=== PATIENT | female | born 1995 | race Hispanic/Latino ===

== ENCOUNTER 2018-03-26 10:52 | Emergency (ER) | payer OTHER ==
[~2018-03-26] VITALS: Ht 162.6 cm; Wt 59.4 kg
[2018-03-26] MEDS ORDERED: DONNATAL/LIDOCAINE/MAALOX 30 ML SUSP PO ONE ×2 (11:15→13:00)
--- NOTE | 2018-03-26 13:25 | Diagnostic Imaging Report ---
EXAMINATION: PA and lateral views of the chest. COMPARISON: None CLINICAL HISTORY: Right chest pain DISCUSSION: Lines/tubes: None. Lungs: The lungs are well inflated and clear. There is no evidence of pneumonia or pulmonary edema. Pleura: There is no pleural effusion or pneumothorax. Heart and mediastinum: Cardiomediastinal silhouette is unremarkable. Pulmonary vasculature is normal. Bones and soft tissues: No acute bony abnormalities. IMPRESSION: No acute cardiopulmonary abnormalities. Signed by: Dr. Dhruv Conde M.D. on 03/26/2018 1:21 PM
== END 2018-03-26 13:54 | disposition home or self-care (01) ==
LOC: ER 10:52
DX: R06.09 Other forms of dyspnea (principal); F41.1 Generalized anxiety disorder
CPT/HCPCS: 71046; 93005; 99284

== ENCOUNTER → 2018-11-11 | Day surgery (SDC) | payer OTHER ==
[~2018-11-11] MED LIST: CEFTRIAXONE SOD 1 GM/NS 50 ML 50 ML IV ONE; DEXAMETHASONE SOD PHOS INJ 4 MG/ML VIAL ONE; FENTANYL CITRATE/PF 100MCG/2 ML INJ ONE; IOPAMIDOL 610MG/1ML 300 MG/ML VIAL IV ONE; LEVOTHYROXINE75 MCG PO; LIDOCAINE HCL 2% LOCAL INJ 5 ML SDV VIAL INJ ONE; MIDAZOLAM HCL 2 MG/2 ML VIAL ONE; ONDANSETRON HCL INJ 2MG/ML 2ML 2 MG/ML VIAL ONE; PROPOFOL IV EMULSION 10 MG/ML 20 ML VIAL ONE; SEVOFLURANE INHAL SOLN 250 ML PEN BTL ONE
[2018-11-11 14:45] VITALS: BP 104/76
--- OUTSIDE RECORDS SUMMARY | 2018-11-19 09:22 | XMS REPORT ---
[facility] Address [facility] Phone Unavailable Care Team Providers Care Client Representative Name Role Phone Dionte BREWSTER Unavailable Unavailable Payers Payer Name Policy Type Policy Number Effective Date Expiration Date Problems This patient has no known problems. Allergies, Adverse Reactions, Alerts Allergy Name Allergy Type Status Severity Reaction(s) Onset Date Inactive Date Treating Clinician Comments Sulfa (Sulfonamide Antibiotics) DA Active U 2014-11-24 00:00:00 Medications This patient has no known medications. Results Test Description Test Time Test Comments Text Results Atomic Results Result Comments URINALYSIS COMPLETE 2018-09-13 21:39:00 UA COLOR (test code=COLU) STRAW YELLOW UA APPEARANCE (test code=APPU) CLEAR CLEAR UA GLUCOSE DIPSTICK (test code=DGLUU) NEGATIVE mg/dL NEGATIVE UA BILIRUBIN DIPSTICK (test code=BILU) NEGATIVE mg/dL NEGATIVE UA KETONE DIPSTICK (test code=KETU) Negative mg/dL NEGATIVE UA SPECIFIC GRAVITY (test code=SGU) 1.011 1.001-1.035 UA BLOOD DIPSTICK (test code=ROYA) Negative NEGATIVE UA PH DIPSTICK (test code=LEO) 7.0 5.0-8.0 UA PROTEIN DIPSTICK (test code=PROU) Negative mg/dL NEGATIVE UA UROBILINIOGEN DIPSTICK (test code=URO) NEGATIVE mg/dL NEGATIVE UA NITRITE DIPSTICK (test code=VOLODYMYR) NEGATIVE NEGATIVE UA LEUKOCYTE ESTERASE W REFLEX (test code=LEUUR) NEGATIVE NEGATIVE UA WBC (test code=WBCU) 0-5 #/HPF 0-5 UA RBC (test code=RBCU) 0-2 #/HPF 0-5 UA EPITHELIAL CELLS (test code=EPIU) FEW per HPF FEW Urine Source? Clean CatchUR HCG [id number] 21:39:00* Test Item Value Reference Range Comments UR HCG QUAL (test code=HCGQLU) NEGATIVE This HCGQL test is NOT applicable for MALE patients.Check with nurse about probable order error.If Tumor Marker Test needed, nurse should order test "HCGTU"(Test #550.97542) Urine Source? Clean CatchURINALYSIS [id number] 21:37:00* Test Item Value Reference Range Comments UA COLOR (test code=COLU) YELLOW UA APPEARANCE (test code=APPU) CLEAR UA BILIRUBIN DIPSTICK (test code=BILU) NEGATIVE UA SPECIFIC GRAVITY (test code=SGU) 1.001-1.035 UA PH DIPSTICK (test code=LEO) 5.0-8.0 UA UROBILINIOGEN DIPSTICK (test code=URO) mg/dL 0.0-0.2 UA NITRITE DIPSTICK (test code=VOLODYMYR) NEGATIVE UA LEUKOCYTE ESTERASE W REFLEX (test code=LEUUR) NEGATIVE UA WBC (test code=WBCU) per HPF 0-5 Urine Source? Clean CatchUR HCG [id number] 21:37:00* Test Item Value Reference Range Comments UR HCG QUAL (test code=HCGQLU) NEGATIVE This HCGQL test is NOT applicable for MALE patients.Check with nurse about probable order error.If Tumor Marker Test needed, nurse should order test "HCGTU"(Test #550.10598) Urine Source? Clean CatchCHEST 2 [id number] 13:21:00 [facility] [address] [address] Patient Name: ALBA LYLES MR #: [id number] : 1995 Age/Sex: 22/F Req #: [id number] Adm Physician: Ordered by: WALLY ARCHULETA NP Report #: [id number] Location: ER Room/Bed: Procedure: [id number] DX/CHEST 2 VIEWS Exam Date: 03/26/18 Exam Time: 1200 REPORT STATUS: Signed EXAMINATION: PA and lateral views of the chest. COMPARISON: None CLINICAL HISTORY: Right chest pain DISCUSSION: Lines/tubes: No ne. Lungs: The lungs are well inflated and clear. There is no evidence of pneumonia or pulmonary edema. Pleura: There is no pleural effusion or pn eumothorax. Heart and mediastinum: Cardiomediastinal silhouette is unremar kable. Pulmonary vasculature is normal. Bones and soft tissues: No ac sal bony abnormalities. IMPRESSION: No acute cardiopulmonary abnormali ties. Signed by: Dr. Naomi Conde M.D. on 03/26/2018 1:21 PM Dictated By: NAOMI CONDE MD 1321 Transcribed By: RANCHO on 03/26/18 1321 COPY TO: WALLY ARCHULETA NP
--- NOTE | 2018-11-23 15:00 | Operative Report ---
DATE OF PROCEDURE: 11/11/2018 SURGEON: Celestino Farmer MD PREOPERATIVE DIAGNOSES: 1. Multiple chronic urinary tract infections. 2. Clinical signs and symptoms of interstitial cystitis. POSTOPERATIVE DIAGNOSES: 1. Multiple chronic urinary tract infections. 2. Clinical signs and symptoms of interstitial cystitis. PROCEDURES: 1. Cystourethroscopy with hydrodistention (entirely separate procedure for clinical signs and symptoms of interstitial cystitis). 2. Cystourethroscopy with left ureteral catheterization and left retrograde pyelogram (entirely separate procedure for multiple chronic urinary tract infections). 3. Cystourethroscopy with right ureteral catheterization and right retrograde pyelogram (separate procedure for multiple chronic urinary tract infections. 4. Supervision of fluoroscopy. 5. Interpretation of retrograde pyelography. ANESTHESIA: General. ESTIMATED BLOOD LOSS: Minimal. COMPLICATIONS: None. INDICATIONS FOR PROCEDURE: Ms. Alas is a very pleasant 23-year-old female with a history of multiple chronic urinary tract infection. She and I had a long discussion regarding alternatives, risks, and benefits including doing nothing, cystoscopy, IVP, retrograde pyelogram, renal ultrasound. She voiced understanding of the options, the alternatives, the risks, and the benefits and she elected to proceed. PROCEDURE IN DETAIL: After informed consent was obtained, the patient was taken to the operative suite. She was placed supine on the operating table. She underwent general anesthesia by Anesthesia service. She was placed in dorsal supine position and sterilely prepped and drape in standard fashion for cystoscopy. A 21-Macedonian cystoscope was inserted per urethra and normal bladder was noted. Panendoscopy of the bladder revealed no tumors or stones. Both ureteral orifices were in normal anatomic location and position efflux of the urine. Hydrodistention was performed, revealed a capacity of 800 mL. There was one glomerulation seen. There were no Hunner's ulcer seen. Bilateral ureters were catheterized. A retrograde pyelogram was performed which was normal. Bladder was then drained. The patient was awakened from anesthesia and transferred to the recovery room in excellent condition. Supervision of fluoroscopy and interpretation of retrograde pyelography: I was present for the entire procedure and I supervised fluoroscopy as no radiologist was present . Attention was turned towards left and right ureters which were catheterized with an 8-Macedonian cone-tipped catheter in retrograde fashion. Contrast was injected revealing duplicate ureters, duplicate pelvocalyceal systems, no evidence of filling defects, no evidence of hydronephrosis. Impression, normal retrograde pyelograms. MD ALBERTO Long/MARY /[id number]
== END | disposition home or self-care (01) ==
LOC: OR 09:21
PROVIDERS: ATTEND Urology
DX: N39.0 Urinary tract infection, site not specified (principal); Q62.5 Duplication of ureter; Z88.2 Allergy status to sulfonamides
CPT/HCPCS: 52005; 74420; 81025; C1758; J0696; J1100; J2001; J2250; J2405; J2704; Q9967